=== PATIENT | male | born 1930 | race Caucasian/White ===

== ENCOUNTER 2017-08-04 10:08 | Emergency (ER) | payer MEDICAID ==
[~2017-08-04] VITALS: Ht 182.9 cm; Wt 68.0 kg
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
[2017-08-04] MEDS ORDERED: TETRACAINE HCL/PF 0.5% UD 2 ML BOTTLE ONE (10:25)
[2017-08-04] MEDS ORDERED: FLUORESCEIN SODIUM OPHTH 1 EA STRIP ONE (10:25)
[2017-08-04] MEDS ORDERED: TETRACAINE HCL/PF 0.5% UD 2 ML BOTTLE RIGHTEYE ONE (10:30)
[2017-08-04] MEDS ORDERED: TONO PEN in ED SUPPLY ONICELL 1 EA MC ONE (10:30)
[2017-08-04] MEDS ORDERED: FLUORESCEIN SODIUM OPHTH 1 EA STRIP OP ONE (10:30)
--- NOTE | 2017-08-04 10:30 | NUR ---
CALLED "[facility]" [phone], NO ONE IS ANSWERING, LEFT VOICE MSG. WILL TRY CALLING AGAIN LATER.
--- NOTE | 2017-08-04 12:01 | NUR ---
DR. DALLAS BANGURA.
--- NOTE | 2017-08-04 12:45 | NUR ---
[facility] ETA 30 MIN. TRIP#[id number]
--- NOTE | 2017-08-04 13:07 | NUR ---
Patient discharged to home in stable condition. Written and verbal after care instructions given. Patient verbalizes understanding of instruction.
[2017-08-04 13:09] VITALS: BP 125/81
== END 2017-08-04 13:09 | disposition home or self-care (01) ==
LOC: ER 10:16
DX: S01.81XA Laceration without foreign body of other part of head, initial encounter (principal); S00.211A Abrasion of right eyelid and periocular area, initial encounter; E11.9 Type 2 diabetes mellitus without complications; F03.90 Unspecified dementia, unspecified severity, without behavioral disturbance, psychotic disturbance, mood disturbance, and anxiety; Y04.0XXA Assault by unarmed brawl or fight, initial encounter; Y93.89 Activity, other specified; Y92.89 Other specified places as the place of occurrence of the external cause; Y99.9 Unspecified external cause status
CPT/HCPCS: 12011; 70486; 99284; A4606; A6402; Z7610